=== PATIENT | female | born 1990 | race African-American/Black ===

== ENCOUNTER 2018-12-05 08:33 | Emergency (ER) | payer OTHER ==
[~2018-12-05] VITALS: Ht 165.1 cm; Wt 77.1 kg
[2018-12-05] MEDS ORDERED: ULTRAM 50MG TAB50 MG PO (09:26)
[2018-12-05] MEDS ORDERED: IBUPROFEN 600600 M1 PO (09:26)
[2018-12-05 09:43] VITALS: BP 126/49
== END 2018-12-05 09:44 | disposition home or self-care (01) ==
LOC: ER 08:33
DX: S40.012A Contusion of left shoulder, initial encounter (principal); F17.210 Nicotine dependence, cigarettes, uncomplicated; W00.0XXA Fall on same level due to ice and snow, initial encounter; Y93.89 Activity, other specified; Y92.89 Other specified places as the place of occurrence of the external cause; Y99.8 Other external cause status